=== PATIENT | female | born 1990 | race African-American/Black ===

== ENCOUNTER 2024-04-20 18:13 | Emergency (ER) | payer SELFPAY ==
[2024-04-20 18:31] VITALS: BP 119/75; PULSE 80; RESP 18; TEMP 36.7; O2SAT 100
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
[2024-04-20 18:58] VITALS: BP 119/75; PULSE 83
[2024-04-20] MEDS: LACTATED RINGERS 1,000 ML 999 ML IV CONT ×2 (19:23→20:19)
[2024-04-20] MEDS: MORPHINE SULFATE (*CRX) 4 MG/ML INJ IV PUSH (19:24)
[2024-04-20 19:34] LABS: Basophils Percent Auto 0.3 % (0.2-1.2); Eosinophils Percent Auto 0.4 % (0-4.4); Hematocrit 27.8 % (37.0-47.0); Hemoglobin 8.7 g/dL (12.0-15.0); Immature Granulocyte Absolute 0.08 K/mm3 (0.00-0.031); Immature Granulocyte Percent A 0.8 % (0-0.5); Lymphocytes Absolute Auto 1.84 K/mm3 (0.9-3.2); Lymphocytes Percent Auto 17.9 % (18.3-44.2); Mean Corpuscular HGB Conc 31.3 g/dl (32-36); Mean Corpuscular Hemoglobin 29.6 pg (26-34); Mean Corpuscular Volume 94.6 fl (80-100); Mean Platelet Volume 11.2 fl (7.4-10.4); Monocytes Absolute Auto 0.6 K/mm3 (0.1-0.6); Monocytes Percent Auto 5.9 % (2.6-8.5); Neutrophils Absolute Auto 7.7 K/mm3 (1.3-6.7); Neutrophils Percent Auto 74.7 % (45.5-73.1); Platelet Count Result 238 k/mm3 (150-375); Red Blood Count 2.94 M/mm3 (4.2-5.4); White Blood Count 10.3 K/mm3 (4.5-10.0)
[2024-04-20 19:37] LABS: Alanine Aminotransferase 6 U/L (6-35); Albumin Level 3.5 g/dL (3.5-5.1); Alkaline Phosphatase 135 U/L (38-126); Anion Gap 3 mmol/L (4-12); Aspartate Amino Transferase 17 U/L (14-36); Bilirubin,Total 0.6 mg/dL (0.2-1.3); Blood Urea Nitrogen 4 mg/dL (7-17); Calcium 8.3 mg/dL (8.4-10.2); Carbon Dioxide 24 mmol/L (22-30); Chloride 106 mmol/L (98-107); Estimated CRCL calculation 126 ml/min; Estimated Glomerular Filt Rate > 60; Glucose 80 mg/dL (65-110); Potassium 3.1 mmol/L (3.4-5.0); Sodium 133 mmol/L (137-145)
--- NOTE | 2024-04-20 20:50 | PC.NURSE ---
Orders received to perform a cervical exam from Dr. Quiñones and Dr. Earl. Cervical dilation fingertip.
[2024-04-20 21:01] VITALS: BP 113/81; PULSE 92
[2024-04-20] MEDS: BETAMETHASONE SOD PHOS/ACETATE 30 MG/5 ML VIAL 12 MG IM (21:11)
--- NOTE | 2024-04-20 21:17 | PC.NURSE ---
patient began having contractions 5 minutes apart and patient was flown to [place]. [id number] phone call to LONNIE HUGO to let her know that patient is flying over and is en route now.
== END 2024-04-20 21:22 | disposition short-term general hospital (02) ==
PROVIDERS: Emergency Provider Preventive Medicine Aerospace Medicine
DX: O26.891 Other specified pregnancy related conditions, first trimester (principal); R10.31 Right lower quadrant pain; Y04.2XXA Assault by strike against or bumped into by another person, initial encounter; Z3A.08 8 weeks gestation of pregnancy
CPT/HCPCS: 36415; 80053; 85025; 86850; 86900; 86901; 96361; 96372; 96374; 99285; J0702; J2270; J7120